=== PATIENT | male | born 1960 ===

== ENCOUNTER → 2021-01-12 | Outpatient (CLI) | payer BC, OTHER ==
[~2021-01-12] VITALS: Ht 182.9 cm; Wt 158.8 kg
[~2021-01-12] MED LIST: BACTRIM DS TAB1 EACH PO; CO Q-10 RED YE1 EACH PO; COZAAR 25 MG TA25 M1 PO; FISH OIL 1,0001 EAC9 PO; FUROSEMIDE 20 M20 MG PO; NEURONTIN 300M300 M2 PO; NORVASC5 MG PO; OZEMPIC SUBQ; SUPER THERAVIT1 EACH PO; TRIAMTERENE/HCT1 CA1 PO; VITAMIN D325 MC3 PO; [UNRECOGNIZED DRUG - OTHER] PO
[2021-01-12 12:58] VITALS: BP 167/83
--- NOTE | 2021-01-12 13:22 | NUR ---
Pain Clinic Assessment: 1. History of Osteoarthritis: Not Applicable History of Rheumatoid Arthritis: Not Applicable 2. Height: 6 ft. 0 in. 182.9 cm. Weight: 350.0 lb. oz. 158.760 kg. Patient's BMI: 47.5 3. Vital Signs: BP: 167/83 Pulse: 89 Resp: 20 Temp: 02 Sat: 96 ECG Mon: 4. Pain Intensity: 2 5. Fall Risk: Dizziness: N Needs help standing or walking: N Fallen in the last 3 months: N Fall risk comments: 6. Patient on Blood Thinner: None 7. History of Hypertension: Y 8. Opioid Therapy greater than 6 weeks: N Opiate Contract Signed: 9. Risk Assessment Tool Provided: 10. Functional Assessment Tool: LOW 11. Recreational Drug Use: Never Drug Type: Tobacco Use: Never Smoker Tobacco Type: Amount or Packs/day: How Many Years: Alcohol Use: Yes Frequency: Weekly Quant: 10
== END ==
LOC: PAIN 07:00
PROVIDERS: ATTEND Anesthesiology Pain Medicine
DX: M79.672 Pain in left foot (principal); R60.0 Localized edema; G62.9 Polyneuropathy, unspecified; I10 Essential (primary) hypertension; Z72.89 Other problems related to lifestyle; Z79.891 Long term (current) use of opiate analgesic; Z79.899 Other long term (current) drug therapy; Z88.8 Allergy status to other drugs, medicaments and biological substances

== ENCOUNTER → 2021-01-19 | Outpatient (CLI) | payer BC, OTHER ==
[~2021-01-19] VITALS: Ht 182.9 cm; Wt 161.4 kg
[2021-01-19 15:10] VITALS: BP 149/67
--- NOTE | 2021-01-19 15:20 | NUR ---
Pain Clinic Assessment: 1. History of Osteoarthritis: Not Applicable History of Rheumatoid Arthritis: Not Applicable 2. Height: 6 ft. 0 in. 182.9 cm. Weight: 355.8 lb. oz. 161.390 kg. Patient's BMI: 48.2 3. Vital Signs: BP: 149/67 Pulse: 86 Resp: 20 Temp: 02 Sat: 96 ECG Mon: 4. Pain Intensity: 1 UP TO 7-8 AT NIGHT 5. Fall Risk: Dizziness: N Needs help standing or walking: N Fallen in the last 3 months: N Fall risk comments: 6. Patient on Blood Thinner: None 7. History of Hypertension: Y 8. Opioid Therapy greater than 6 weeks: N Opiate Contract Signed: 9. Risk Assessment Tool Provided: 10. Functional Assessment Tool: LOW 11. Recreational Drug Use: Never Drug Type: Tobacco Use: Never Smoker Tobacco Type: Amount or Packs/day: How Many Years: Alcohol Use: Yes Frequency: Weekly Quant:
== END | disposition home or self-care (01) ==
LOC: PAIN 07:40
PROVIDERS: ATTEND Anesthesiology Pain Medicine
DX: M54.16 Radiculopathy, lumbar region (principal)

== ENCOUNTER → 2021-02-19 | Outpatient (CLI) | payer BC, OTHER ==
[~2021-02-19] VITALS: Ht 182.9 cm; Wt 156.2 kg
[~2021-02-19] MED LIST changes: +ASA81BEC PO; +LIPITOR 10 MG10 M1 PO; +SPIRONOLACTONE25 M1 PO
[2021-02-19 09:08] VITALS: BP 154/89
--- NOTE | 2021-02-19 09:18 | NUR ---
Pain Clinic Assessment: 1. History of Osteoarthritis: Not Applicable History of Rheumatoid Arthritis: Not Applicable 2. Height: 6 ft. 0 in. 182.9 cm. Weight: 344.4 lb. oz. 156.219 kg. Patient's BMI: 46.7 3. Vital Signs: BP: 154/89 Pulse: 91 Resp: 20 Temp: 02 Sat: 96 ECG Mon: 4. Pain Intensity: 3 5. Fall Risk: Dizziness: N Needs help standing or walking: N Fallen in the last 3 months: N Fall risk comments: 6. Patient on Blood Thinner: None 7. History of Hypertension: Y 8. Opioid Therapy greater than 6 weeks: N Opiate Contract Signed: 9. Risk Assessment Tool Provided: 10. Functional Assessment Tool: LOW 11. Recreational Drug Use: Never Drug Type: Tobacco Use: Never Smoker Tobacco Type: Amount or Packs/day: How Many Years: Alcohol Use: Yes Frequency: Weekly Quant: 2-3 GLASSES OF WINE
== END ==
LOC: PAIN 07:54
PROVIDERS: ATTEND Anesthesiology Pain Medicine
DX: M54.16 Radiculopathy, lumbar region (principal); M10.9 Gout, unspecified

== ENCOUNTER → 2021-04-06 | Outpatient (CLI) | payer BC, OTHER ==
[~2021-04-06] VITALS: Ht 182.9 cm; Wt 158.8 kg
[2021-04-06 09:05] VITALS: BP 138/67
--- NOTE | 2021-04-06 09:17 | NUR ---
Pain Clinic Assessment: 1. History of Osteoarthritis: Not Applicable History of Rheumatoid Arthritis: Not Applicable 2. Height: 6 ft. 0 in. 182.9 cm. Weight: 350.2 lb. oz. 158.850 kg. Patient's BMI: 47.5 3. Vital Signs: BP: 138/67 Pulse: 81 Resp: 16 Temp: 02 Sat: 97 ECG Mon: 4. Pain Intensity: 1-2 AVG W/ACTIVITY 5. Fall Risk: Dizziness: N Needs help standing or walking: N Fallen in the last 3 months: N Fall risk comments: 6. Patient on Blood Thinner: None 7. History of Hypertension: Y 8. Opioid Therapy greater than 6 weeks: N Opiate Contract Signed: 9. Risk Assessment Tool Provided: 10. Functional Assessment Tool: LOW 11. Recreational Drug Use: Never Drug Type: Tobacco Use: Never Smoker Tobacco Type: Amount or Packs/day: How Many Years: Alcohol Use: Yes Frequency: Quant:
== END ==
LOC: PAIN 03-12 09:01
PROVIDERS: ATTEND Anesthesiology Pain Medicine
DX: M12.872 Other specific arthropathies, not elsewhere classified, left ankle and foot (principal); M54.16 Radiculopathy, lumbar region; Z79.891 Long term (current) use of opiate analgesic; Z79.899 Other long term (current) drug therapy

== ENCOUNTER → 2021-08-10 | Outpatient (CLI) | payer BC, OTHER ==
[~2021-08-10] VITALS: Ht 182.9 cm; Wt 161.0 kg
[2021-08-10 09:15] VITALS: BP 156/86
--- NOTE | 2021-08-10 09:38 | NUR ---
Pain Clinic Assessment: 1. History of Osteoarthritis: Not Applicable History of Rheumatoid Arthritis: Not Applicable 2. Height: 6 ft. 0 in. 182.9 cm. Weight: 355.0 lb. oz. 161.028 kg. Patient's BMI: 48.1 3. Vital Signs: BP: 156/86 Pulse: 84 Resp: 18 Temp: 02 Sat: 97 ECG Mon: 4. Pain Intensity: 1-2 AVG W/ACTIVITY 5. Fall Risk: Dizziness: N Needs help standing or walking: N Fallen in the last 3 months: N Fall risk comments: 6. Patient on Blood Thinner: None 7. History of Hypertension: Y 8. Opioid Therapy greater than 6 weeks: N Opiate Contract Signed: 9. Risk Assessment Tool Provided: 10. Functional Assessment Tool: LOW 11. Recreational Drug Use: Never Drug Type: Tobacco Use: Never Smoker Tobacco Type: Amount or Packs/day: How Many Years: Alcohol Use: Yes Frequency: Quant:
== END | disposition home or self-care (01) ==
LOC: PAIN 08-08 07:23
PROVIDERS: ATTEND Anesthesiology Pain Medicine
DX: M54.16 Radiculopathy, lumbar region (principal); G89.29 Other chronic pain; I10 Essential (primary) hypertension; Z98.890 Other specified postprocedural states; Z79.899 Other long term (current) drug therapy; Z88.8 Allergy status to other drugs, medicaments and biological substances